=== PATIENT | female | born 1955 | race Caucasian/White ===

== ENCOUNTER 2023-01-26 01:12 | Emergency (ER) | payer OTHER ==
[~2023-01-26] VITALS: Ht 154.9 cm; Wt 64.4 kg
[2023-01-26 02:01] LABS: BASOPHILS % 0.4 % (0.0-1.0); EOSINOPHILS % 0.2 % (0.0-6.0); HEMATOCRIT 32.4 % (34.2-44.1); HEMOGLOBIN 10.5 g/dL (12.0-16.0); LYMPHOCYTES # (AUTO) 1.2 (1.0-3.2); LYMPHOCYTES % 13.4 % (18.0-39.1); MEAN CORPUSCULAR HEMOGLOBIN 27.9 pg (28-32); MEAN CORPUSCULAR HGB CONC 32.4 g/dL (31-35); MEAN CORPUSCULAR VOLUME 85.9 fL (81-99); MONOCYTES # (AUTO) 0.7 (0.2-0.8); MONOCYTES % 7.9 % (4.4-11.3); NEUTROPHILS # (AUTO) 6.9 (2.1-6.9); NEUTROPHILS % 77.7 % (38.7-80.0); PLATELET COUNT 199 x10e3/uL (140-360); RED BLOOD COUNT 3.77 x10e6/uL (3.6-5.1); RED CELL DISTRIBUTION WIDTH 13.5 % (11.7-14.4); WHITE BLOOD COUNT 8.91 x10e3/uL (4.8-10.8)
[2023-01-26 02:43] LABS: AMPHETAMINES SCREEN,URINE NEGATIVE (NEGATIVE); BENZODIAZEPINES SCREEN,URINE NEGATIVE (NEGATIVE); CANNABINOIDS SCREEN,URINE NEGATIVE (NEGATIVE); METHADONE SCREEN, URINE NEGATIVE (NEGATIVE); OPIATES SCREEN,URINE POSITIVE (NEGATIVE); PHENCYCLIDINE SCREEN,URINE NEGATIVE (NEGATIVE)
[2023-01-26 02:46] LABS: BILIRUBIN,URINE SMALL (NEGATIVE); CLARITY,URINE CLEAR (CLEAR); COLOR,URINE YELLOW (YELLOW); GLUCOSE, URINE 500 (NEGATIVE); KETONES,URINE NEGATIVE (NEGATIVE); LEUKOCYTE ESTERASE ,URINE NEGATIVE (NEGATIVE); NITRITE,URINE POSITIVE (NEGATIVE); PH,URINE 5 (5 - 7); PROTEIN,URINE DIPSTICK 2+ (NEGATIVE); URINE UROBILINOGEN 0.2 mg/dL (0.2 - 1)
[2023-01-26 02:54] LABS: ALBUMIN 3.5 g/dL (3.5-5.0); ALBUMIN/GLOBULIN RATIO 0.7 (0.8-2.0); ANION GAP 18.7 mmol/L (8-16); BILIRUBIN,TOTAL 1.1 mg/dL (0.2-1.2); CALCIUM 9.2 mg/dL (8.4-10.2); CREATININE, SERUM 2.15 mg/dL (0.57-1.11); POTASSIUM 4.7 mmol/L (3.5-5.1); TOTAL PROTEIN 8.3 g/dL (6.5-8.1)
[2023-01-26] MEDS ORDERED: SODIUM CHLORIDE 0.9% 1000ML 1,000 ML IV ONE (03:15)
[2023-01-26 03:17] LABS: BACTERIA,URINE MANY /HPF; EPITHELIAL CELLS,URINE FEW /LPF; RBC,URINE >50 /HPF (0-5); WBC,URINE (MAN) 0-5 /HPF (0-5)
[2023-01-26 03:19] LABS: YEAST,URINE MANY
[2023-01-26] MEDS ORDERED: CEFDINIR300 MG PO (03:22)
[2023-01-26] MEDS ORDERED: CEFTRIAXONE 1 GM VIAL ONE (03:26)
[2023-01-26 04:06] VITALS: BP 104/90; PULSE 95; RESP 18; TEMP 97.7; O2SAT 99
== END 2023-01-26 03:55 | disposition home or self-care (01) ==
LOC: ER 01:22
DX: M25.552 Pain in left hip (principal); M25.551 Pain in right hip; M13.852 Other specified arthritis, left hip; M13.851 Other specified arthritis, right hip; I12.9 Hypertensive chronic kidney disease with stage 1 through stage 4 chronic kidney disease, or unspecified chronic kidney disease; E11.22 Type 2 diabetes mellitus with diabetic chronic kidney disease; E11.65 Type 2 diabetes mellitus with hyperglycemia; N18.9 Chronic kidney disease, unspecified; D64.9 Anemia, unspecified; E78.5 Hyperlipidemia, unspecified; M54.9 Dorsalgia, unspecified; G89.29 Other chronic pain; Z11.52 Encounter for screening for COVID-19; F17.210 Nicotine dependence, cigarettes, uncomplicated
CPT/HCPCS: 36415; 73523; 80053; 80307; 81001; 85025; 99284; J0696; J7030; U0002

== ENCOUNTER 2024-03-30 15:09 | Emergency (ER) | payer MEDICARE ==
[~2024-03-30] VITALS: Ht 157.5 cm; Wt 63.5 kg
[~2024-03-30 15:09] MED LIST: CEFDINIR300 MG PO
[2024-03-30 17:30] VITALS: PULSE 52; RESP 18; TEMP 97.9
[2024-03-30 18:37] VITALS: BP 118/62; PULSE 80; RESP 8; TEMP 97.9; O2SAT 99
== END 2024-03-30 19:13 | disposition home or self-care (01) ==
LOC: ER 15:20
DX: S32.591A Other specified fracture of right pubis, initial encounter for closed fracture (principal); S00.83XA Contusion of other part of head, initial encounter; W01.0XXA Fall on same level from slipping, tripping and stumbling without subsequent striking against object, initial encounter; Y93.01 Activity, walking, marching and hiking; Y92.89 Other specified places as the place of occurrence of the external cause; I10 Essential (primary) hypertension; E11.9 Type 2 diabetes mellitus without complications; E78.5 Hyperlipidemia, unspecified; D64.9 Anemia, unspecified; M54.9 Dorsalgia, unspecified; G89.29 Other chronic pain
CPT/HCPCS: 70450; 72125; 74176; 99283